=== PATIENT | male | born 1935 | race Caucasian/White ===

== ENCOUNTER 2020-06-17 17:20 | Emergency (ER) | payer MEDICARE, BC ==
[~2020-06-17] VITALS: Ht 175.3 cm; Wt 72.6 kg
[~2020-06-17 17:20] MED LIST: CIPROFLOXACIN500 M1 PO; PROZAC40 MG; ZESTRIL20 MG
[2020-06-17] MEDS ORDERED: OMEPRAZOLE 20 M20 M1 PO (17:40)
[2020-06-17] MEDS ORDERED: HYDROCHLOROTH12.5 M2 PO (17:40)
[2020-06-17] MEDS ORDERED: UROXATRAL PO (17:40)
[2020-06-17] MEDS ORDERED: COZAAR 25 MG TA25 M1 PO (17:41)
[2020-06-17 18:16] LABS: HEMATOCRIT 39.6 % (42.0-52.0); HEMOGLOBIN 14.2 gm/dL (14.0-18.0); MCV 86.2 fL (80.0-100.0); MPV 6.1 fl. (7.2-11.1); NUCLEATED RBCS 0 /100WBC; PLATELET COUNT* 142 thou/uL (150-400); RBC 4.59 mil/uL (4.50-6.00); WBC 4.2 thou/uL (4.0-11.0)
[2020-06-17 18:24] LABS: INR 1.1; PROTIME 11.4 Seconds (9.20-11.50)
[2020-06-17 18:25] LABS: CALCIUM 9.4 mg/dL (8.5-10.1); CREATININE 1.1 mg/dL (0.6-1.3); POTASSIUM 3.3 mmol/L (3.5-5.1)
[2020-06-17 18:37] LABS: ALBUMIN 3.8 g/dL (3.4-5.0); MAGNESIUM 1.7 mg/dL (1.8-2.4); TOTAL BILIRUBIN 1.2 mg/dL (<0.1-1.0)
[2020-06-17 18:44] LABS: ABSOLUTE LYMPHOCYTES 0.2 thou/uL (0.8-5.3); ABSOLUTE MONOCYTES 0.1 thou/uL (0.0-1.2); ABSOLUTE NEUTROPHILS 3.9 thou/uL (1.6-8.1); ATYPICAL LYMPHS 1 %
[2020-06-17 18:45] LABS: INFLUENZA A ANTIGEN Negative (Negative); INFLUENZA B ANTIGEN Negative (Negative); PLATELET ESTIMATE DECREASED
[2020-06-17 19:41] LABS: URINE BILIRUBIN NEGATIVE (Negative); URINE BLOOD 2+ (Negative); URINE CLARITY CLEAR; URINE COLOR YELLOW; URINE GLUCOSE-RANDOM NEGATIVE (Negative); URINE KETONES NEGATIVE (Negative); URINE LEUKOCYTES TRACE (Negative); URINE NITRITE NEGATIVE (Negative); URINE PROTEIN NEGATIVE (Negative); URINE UROBILINOGEN 0.2 E.U./dl (0.2-1.0)
[2020-06-17 19:52] LABS: BACTERIA 1-9 Few /HPF (None Seen); CASTS None Seen /LPF (None Seen); CRYSTALS None Seen /LPF (None Seen); SQUAMOUS 0-3 Few /LPF (0-3); URINE RBC 3-10 Few /HPF (0-2); URINE WBC 6-15 Few /HPF (0-5)
[2020-06-17] MEDS ORDERED: KEFLEX500 M1 PO (21:19)
[2020-06-17 21:25] VITALS: BP 160/79
--- NOTE | 2020-06-18 11:58 | EKG ---
[place] [address] ELECTROCARDIOGRAM REPORT Name: CALI WALTERS JR Room: [facility]#: [id number] Admission: 06/17/20 Attend Phys: Discharge: 06/17/20 Date of : 31 Date of Service: 06/17/20 1730 Report #: [id number] THIS REPORT FOR: //name// [facility] ED Test Date: 2020-06-17 Test Time: 17:30:36 Pat Name: CALI WALTERS Department: Room: Gender: A R Specialist: [facility] : [id number] Requested By: Genie Bowles Order Number: [id number] MD: Elmer Hansen Measurements Intervals [place] Rate: 92 P: 65 TN: 141 QRS: 48 QRSD: 137 T: 37 QT: 361 QTc: 447 Interpretive Statements Sinus rhythm Right bundle branch block Baseline wander in lead(s) I,II,aVR,aVF No previous ECG available for comparison Electronically Signed On 06-18-2020 11:58:03 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
== END 2020-06-17 21:25 | disposition home or self-care (01) ==
LOC: M.ERS 17:20
PROVIDERS: Physician Assistant
DX: I10 Essential (primary) hypertension (principal); N39.0 Urinary tract infection, site not specified; R50.9 Fever, unspecified; Z20.822 Contact with and (suspected) exposure to COVID-19; K21.9 Gastro-esophageal reflux disease without esophagitis; E78.5 Hyperlipidemia, unspecified